=== PATIENT | female | born 1990 | race African-American/Black ===

== ENCOUNTER 2022-01-24 06:36 | Emergency (ER) | payer OTHER, SELFPAY ==
[2022-01-24 06:38] VITALS: BP 100/78; PULSE 92; RESP 16; TEMP 36.1; O2SAT 100
[2022-01-24 06:57] LABS: Appearance Urine Slightly Cloudy (Clear); Bilirubin Urine Negative (Negative); Blood Urine 1+ (Negative); Color Urine Yellow (Yellow); Glucose Urine UA Negative (Negative); Ketones Urine Negative (Negative); Leukocyte Esterase Ur 3+ LEU/UL (Negative); Nitrate Urine Negative (Negative); Protein Urine 1+ mg/dL (Negative); Specific Grav Ur 1.025 (1.001-1.035); Urobilinogen Urine 0.2 mg/dL (<2.0); pH Urine 6.5 (5.0-9.0)
[2022-01-24 06:57] LABS: Basophils Percent Auto 0.1 % (0.2-1.2); Eosinophils Absolute Auto 0.1 K/mm3 (0-0.3); Eosinophils Percent Auto 0.7 % (0-4.4); Hematocrit 34.7 % (37.0-47.0); Hemoglobin 11.6 g/dL (12.0-15.0); Immature Granulocyte Absolute 0.08 K/mm3 (0.00-0.031); Immature Granulocyte Percent A 0.6 % (0-0.5); Lymphocytes Absolute Auto 2.33 K/mm3 (0.9-3.2); Lymphocytes Percent Auto 17.3 % (18.3-44.2); Mean Corpuscular HGB Conc 33.4 g/dl (32-36); Mean Corpuscular Hemoglobin 30.9 pg (26-34); Mean Corpuscular Volume 92.5 fl (80-100); Mean Platelet Volume 8.7 fl (7.4-10.4); Monocytes Percent Auto 7.4 % (2.6-8.5); Neutrophils Absolute Auto 9.9 K/mm3 (1.3-6.7); Neutrophils Percent Auto 73.9 % (45.5-73.1); Platelet Count Result 258 k/mm3 (150-375); Red Blood Count 3.75 M/mm3 (4.2-5.4); Red Cell Distribution Width 12.4 % (11.5-14.5); White Blood Count 13.4 K/mm3 (4.5-10.0)
[2022-01-24 07:02] LABS: Bacteria Urine Trace /hpf; Mucus Urine Few /lpf; RBC Urine 21-50 /hpf (0-2); Squamous Epithelial Cell Urine Many /hpf (Few); Transitional Epi Cells Urine Rare /hpf (None Seen); WBC Urine 21-30 /hpf
[2022-01-24 07:10] LABS: Add Urine Microscopic? YES
[2022-01-24 07:12] LABS: Alanine Aminotransferase 28 U/L (6-35); Albumin Level 3.6 g/dL (3.5-5.1); Alkaline Phosphatase 56 U/L (38-126); Anion Gap 3 mmol/L (8-16); Aspartate Amino Transferase 21 U/L (14-36); Bilirubin,Total < 0.1 mg/dL (0.2-1.3); Blood Urea Nitrogen 4 mg/dL (7-17); Calcium 8.3 mg/dL (8.4-10.2); Carbon Dioxide 22 mmol/L (22-30); Chloride 110 mmol/L (98-107); Estimated CRCL calculation 182 ml/min; Estimated Glomerular Filt Rate > 60; Glucose 89 mg/dL (65-110); Lipase 126 U/L (23-300); Potassium 3.7 mmol/L (3.4-5.0); Sodium 135 mmol/L (137-145)
--- NOTE | 2022-01-24 07:27 | ED.GENADULT ---
HPI - General Adult General Chief complaint: Back Pain/Injury Stated complaint: 22 week preg with lower left back pain Time Seen by Provider: 01/24/22 07:18 History of Present Illness HPI narrative: 33-year-old female presents emergency room secondary pain in the left lower lumbar region. She is currently about 22 weeks . She did have a urinary tract infection about a month ago. She has had some mild urinary frequency but no dysuria. No chills or fevers. She is had an ultrasound done during this which shows no abnormalities at this time. Scheduled to see her [employer] again in about 2 to 3 weeks. Pain hurts more when she tries to move. Denies any pain down her leg. She had no associated chills or fevers. Related Data Allergies Allergy/AdvReac Type Severity Reaction Status Date / Time No Known Allergies Allergy Verified 01/24/22 06:37 Review of Systems Review of Systems: CONSTITUTIONAL: Denies fever, chills, or sweats. EYES: Denies visual changes, redness, or discharge. ENT: Denies rhinorrhea, congestion, sore throat, or otalgia. CARDIOVASCULAR: Denies chest pain, palpitations, or edema. RESPIRATORY: Denies cough or dyspnea. GASTROINTESTINAL: Denies abdominal pain, nausea, vomiting, or diarrhea. GENITOURINARY: Denies dysuria or hematuria. Currently 22 weeks gestation. Have some mild urinary frequency. SKIN: Denies rash or itching. MUSCULOSKELETAL: Pain to left lower lumbar paraspinal muscle region. NEUROLOGIC: Denies headache, numbness, or weakness. PSYCHIATRIC: Denies anxiety or depression. [facility] Past Medical History Medical History No pertinent past medical history Social History Social History Occupation/Education: occupation Additional occupation/education comments: Working 2 different jobs at this time. 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 Exam Narrative: APPEARANCE: Well appearing, no pain or distress, well-nourished. Head normocephalic and atraumatic. EYES: PERRLA/EOMI, conjunctivae very clear. NOSE: Normal with no drainage EARS:TMS clear Alethea Esqueda, with good light reflex. THROAT: Pharynx clear, no exudate. NECK: Supple. No adenopathy, no masses. RESPIRATORY: Airway patent, respirations nonlabored. Clear to auscultation bilaterally, no rales, rhonchi, wheezing. CARDIOVASCULAR: Regular rate and rhythm without murmurs, rubs, or gallops. ABDOMINAL: Soft, nontender, nondistended, no hepatosplenomegaly. Gravid uterus is noted with no tenderness Musculoskeletal: Moves all extremities. Strength/ROM intact, No edema, No calf tenderness. Mild paraspinal tenderness in the left lumbar region. Negative straight leg raising. NEURO: Alert. Cranial nerves II through XII intact. Normal gait. Good coordination. Nonfocal examination. SKIN:: Warm, dry. Normal Color PSYCHIATRIC: Normal affect/mood, normal interaction Course Vital Signs Vital signs: Vital Signs Temperature 97 F L 01/24/22 06:38 Pulse Rate 92 01/24/22 06:38 Respiratory Rate 16 01/24/22 06:38 Blood Pressure 100/78 01/24/22 06:38 Pulse Oximetry 100 01/24/22 06:38 Oxygen Delivery Room Air 01/24/22 06:38 Temperature 97 F L 01/24/22 06:38 Pulse Rate 92 01/24/22 06:38 Respiratory Rate 16 01/24/22 06:38 Blood Pressure 100/78 01/24/22 06:38 Pulse Oximetry 100 01/24/22 06:38 Oxygen Delivery Room Air 01/24/22 06:38 Medical Decision Making MDM Narrative Medical decision making narrative: Pains were associated with musculoskeletal left lumbar pain. However the urinalysis is positive and we will treat her for urinary tract infection. Vital Signs Vital Signs: Vital Signs Temperature 97 F L 01/24/22 06:38 Pulse Rate 92 01/24/22 06:38 Respiratory Rate 16 01/24/22 06:38 Blood Pressure 100/78 01/24/22 06:38 Pulse Oximetry 100 01/24/22 06:38 Oxygen Deliver
[2022-01-24 07:50] VITALS: BP 110/75; PULSE 79; RESP 16; O2SAT 100
== END 2022-01-24 07:50 | disposition home or self-care (01) ==
PROVIDERS: Emergency Medicine; Emergency Provider Emergency Medicine
DX: O23.42 Unspecified infection of urinary tract in pregnancy, second trimester (principal); O9A.212 Injury, poisoning and certain other consequences of external causes complicating pregnancy, second trimester; Z3A.22 22 weeks gestation of pregnancy; S39.012A Strain of muscle, fascia and tendon of lower back, initial encounter; X58.XXXA Exposure to other specified factors, initial encounter
CPT/HCPCS: 36415; 80053; 81001; 83690; 85025; 87086; 87088; 99283